=== PATIENT | male | born 2000 | race African-American/Black ===

== ENCOUNTER 2020-12-22 17:45 | Emergency (ER) | payer MEDICAID ==
[~2020-12-22] VITALS: Ht 185.4 cm; Wt 65.0 kg
[2020-12-22] MEDS ORDERED: IBUPROFEN 600MG TABLET PO ONE (18:00)
[2020-12-22] MEDS ORDERED: VISCOUS LIDOCAINE 2% 15 ML UDC MM ONE (18:00)
[2020-12-22] MEDS ORDERED: IBUP-2029 MT (18:02)
[2020-12-22 18:03] VITALS: BP 140/72
== END 2020-12-22 18:13 | disposition home or self-care (01) ==
LOC: ER 17:45
DX: K02.9 Dental caries, unspecified (principal); Z13.9 Encounter for screening, unspecified
CPT/HCPCS: 99283

== ENCOUNTER 2022-06-03 14:09 | Emergency (ER) | payer MEDICAID ==
[~2022-06-03] VITALS: Ht 185.4 cm; Wt 73.0 kg
[~2022-06-03 14:09] MED LIST: IBUP-2029 MT
[2022-06-03 14:46] VITALS: BP 115/71
[2022-06-03] MEDS ORDERED: LIDOCAINE HCL 1% 20ML VIAL (Pyxis) INJ INFIL ONE (19:00)
== END 2022-06-03 20:00 | disposition home or self-care (01) ==
LOC: ER 14:09
DX: L72.0 Epidermal cyst (principal); S71.111A Laceration without foreign body, right thigh, initial encounter; F12.10 Cannabis abuse, uncomplicated; X58.XXXA Exposure to other specified factors, initial encounter; Y93.89 Activity, other specified; Y92.89 Other specified places as the place of occurrence of the external cause; Y99.8 Other external cause status
CPT/HCPCS: 10060; 12001; 99282; J3490; Z7610

== ENCOUNTER 2022-07-26 11:59 | Emergency (ER) | payer MEDICAID ==
[~2022-07-26] VITALS: Ht 185.4 cm; Wt 78.0 kg
[2022-07-26] MEDS ORDERED: LIDOCAINE HCL/EPINEPHRINE 1%-EPI 1:100,000 20 ML VIAL INFIL ONE (12:45)
[2022-07-26] MEDS ORDERED: IBUPROFEN 400MG TABLET PO ONE (12:45)
[2022-07-26] MEDS ORDERED: ACETAMINOPHEN 325MG TABLET PO ONE (12:45)
[2022-07-26] MEDS ORDERED: BACITRACIN ZINC OINT UDPKT TOP ONE (14:30)
[2022-07-26] MEDS ORDERED: KETOROLAC 60MG/2ML VIAL IM ONE (14:30)
[2022-07-26] MEDS ORDERED: CEPH500C2 MT (14:32)
[2022-07-26] MEDS ORDERED: BO1 TP (14:32)
[2022-07-26 15:40] VITALS: BP 106/68
== END 2022-07-26 15:43 | disposition home or self-care (01) ==
LOC: ER 12:07
DX: S81.011A Laceration without foreign body, right knee, initial encounter (principal); V87.8XXA Person injured in other specified noncollision transport accidents involving motor vehicle (traffic), initial encounter; Y93.89 Activity, other specified; Y92.89 Other specified places as the place of occurrence of the external cause; Y99.8 Other external cause status
CPT/HCPCS: 12002; 73562; 96372; 99283; J1885; J3490; Z7610